=== PATIENT | female | born 1945 | race Caucasian/White ===

== ENCOUNTER 2019-02-23 05:46 | Day surgery (SDC) | payer MEDICARE, BC ==
[2019-02-23] MEDS ORDERED: MIDAZOLAM 1 MG/ML 2 ML INJ (07:20)
[2019-02-23] MEDS ORDERED: PROPOFOL 20 ML (07:20)
[2019-02-23] MEDS ORDERED: ROPIVACAINE 0.5 % 30 ML VIAL (07:20)
[2019-02-23] MEDS ORDERED: METOCLOPRAMIDE 10 MG INJ (07:21)
[2019-02-23] MEDS ORDERED: CEFAZOLIN 1 GM INJ (07:34)
[2019-02-23] MEDS ORDERED: ONDANSETRON 4 MG INJ (07:34)
[2019-02-23] MEDS ORDERED: FENTAnyl 50 MCG/ML VIAL (07:35)
[2019-02-23] MEDS ORDERED: HYDROmorphONE 1 MG/5 ML IV SYRINGE IV ×3 (08:00)
[2019-02-23] MEDS: POLYMYXIN/BACITRACIN 1L IRRIG (08:00)
[2019-02-23] MEDS ORDERED: DIPHENHYDRAMINE 50 MG INJ IV (08:00)
[2019-02-23] MEDS ORDERED: ONDANSETRON 4 MG INJ IV (08:00)
[2019-02-23] MEDS ORDERED: MEPERIDINE 25 MG INJ IV (08:00)
[2019-02-23] MEDS ORDERED: OXYCODONE/ACETAMINOPHEN (5/325) TAB PO ×2 (08:00)
[2019-02-23] MEDS ORDERED: FENTAnyl 50 MCG/ML VIAL IV ×3 (08:00)
[2019-02-23] MEDS ORDERED: HYDROmorphONE 2 MG/ML SYG (08:54)
[2019-02-23] MEDS: ROPIVACAINE 0.5 % 30 ML VIAL (09:00)
[2019-02-23] MEDS: BACITRACIN/POLYMYXIN 28.35 GM OINT TOP (09:00)
[2019-02-23] MEDS ORDERED: morphine 2 MG INJ IV (10:00)
[2019-02-23] MEDS ORDERED: KETOROLAC 30 MG INJ (10:02)
[2019-02-23] MEDS: LACTATED RINGER'S 1,000 ML IV (10:16)
[2019-02-23] MEDS ORDERED: EPHEDrine 25 MG/5 ML SYG (10:50)
== END 2019-02-23 11:38 | disposition home or self-care (01) ==
LOC: SDS 05:46
DX: M19.072 Primary osteoarthritis, left ankle and foot (principal)
CPT/HCPCS: 28730; 73630-LT; 82306